=== PATIENT | female | born 1960 | race Two or more races ===

== ENCOUNTER → 2018-01-19 | Outpatient (REF) | payer OTHER | LOC: M LAB REF 09:33 | DX: M54.5 Low back pain (principal) ==

== ENCOUNTER → 2019-09-18 | Outpatient (REF) | payer BC | LOC: M LAB REF 07:16 | PROVIDERS: ATTEND Nurse Practitioner Family | DX: R30.0 Dysuria (principal) ==

== ENCOUNTER → 2020-07-11 | Outpatient (CLI) | payer BC ==
[~2020-07-11] MED LIST: PROHANCE 279.3MG/ML 15ML VIAL As Ordered ONE; PROHANCE 279.3MG/ML 5ML VIAL As Ordered ONE
--- NOTE | 2020-07-11 10:49 | REP ---
INDICATION: NEOPLASM OF UNCERTAIN BEHAVIOR OF LIVER, GB . COMPARISON: MRI 02/18/2018. TECHNIQUE: Multiple sequences obtained in the axial coronal planes prior to and following the intravenous administration of 17 cc ProHance. Heavily T2 weighted sequences are obtained through the biliary system, with MIP reconstruction images. FINDINGS: On T2 weighted images there is an oval hyperintense nodule in the anterior left lobe of the liver along the falciform ligament. Size is stable, with a maximum diameter of 1.7 cm. This demonstrates enhancement characteristics consistent with a benign hemangioma. No other liver lesion is seen. There is diffuse fatty infiltration of the liver. The gallbladder appears unremarkable. Common bile duct is minimally prominent in maximum diameter, 8 mm. An 8 mm filling defect in the common bile duct on the 3D MRCP images is felt to be artifactual, as it is not seen on any other sequence. The spleen, adrenals and pancreas are unremarkable. There is no pancreatic duct dilatation. There are small bilateral parapelvic cysts in the kidneys. There is no adenopathy or free fluid in the abdomen. IMPRESSION: Stable hemangioma left lobe of the liver. Diffuse fatty infiltration of the liver. Slightly prominent common bile duct diameter of 8 mm. On the 3D MRCP images an 8 mm filling defect in the common bile duct is felt to be artifactual, as it is not seen on any other sequence. <Electronically signed by Slim Almazan > 07/11/20 [id number]
== END ==
LOC: M RAD 08:16
PROVIDERS: ATTEND Internal Medicine Gastroenterology
DX: D18.09 Hemangioma of other sites (principal); K76.0 Fatty (change of) liver, not elsewhere classified; N28.1 Cyst of kidney, acquired
CPT/HCPCS: 74183; A9576

== ENCOUNTER → 2020-12-11 | Outpatient (CLI) | payer BC | LOC: M CARPUL 09:19 | PROVIDERS: ATTEND Internal Medicine | DX: Z79.899 Other long term (current) drug therapy (principal); Z84.89 Family history of other specified conditions ==

== ENCOUNTER 2022-09-17 16:23 | Emergency (ER) | payer BC ==
[~2022-09-17] VITALS: Ht 160 cm; Wt 89.5 kg
[2022-09-17 17:45] LABS: BASO % 0.4 % (0.0-1.0); EOS # 0.1 10^3/uL (0.0-0.5); EOS % 1.6 % (0.0-3.0); HEMATOCRIT 43.3 % (36.0-47.0); HEMOGLOBIN 14.3 g/dl (12.0-15.5); LYMPH # 1.3 10^3/uL (1.5-5.0); LYMPH % 16.4 % (24.0-44.0); MEAN CORPUSCULAR VOLUME 84.9 fl (80.0-96.0); MONO # 0.8 10^3/uL (0.0-0.8); MONO % 9.9 % (2.0-8.0); NEUTROPHILS # 5.8 10^3/uL (1.5-8.5); NEUTROPHILS % 71.2 % (36.0-66.0); PLATELET COUNT, AUTOMATED 205 10^3/uL (150-450); WHITE BLOOD COUNT 8.2 10^3/uL (4.0-10.0)
[2022-09-17 18:20] LABS: BLOOD UREA NITROGEN 14 MG/DL (9-23); CALCIUM LEVEL 8.9 MG/DL (8.3-10.6); CARBON DIOXIDE LEVEL 27 MMOL/L (20-31); CHLORIDE LEVEL 103 MMOL/L (98-107); CK-MB VALUE MASS < 1.0 NG/ML (<3.6); CPK CREATINE PHOSPHOKINASE 87 U/L (34-145); CREATININE FOR GFR 0.52 MG/DL (0.55-1.30); GLOMERULAR FILTRATION RATE > 60.0 (>45); GLUCOSE, FASTING 115 MG/DL (74-106); MB/CK RELATIVE INDEX 1.14 (< OR =4); POTASSIUM SERUM 4.8 MMOL/L (3.5-5.1); SODIUM LEVEL 141 MMOL/L (136-145)
[2022-09-17 19:06] LABS: CK-MB VALUE MASS < 1.0 NG/ML (<3.6)
[2022-09-17 19:09] LABS: CPK CREATINE PHOSPHOKINASE 75 U/L (34-145); MB/CK RELATIVE INDEX 1.33 (< OR =4)
[2022-09-17 20:30] VITALS: BP 124/58; TEMP 98.3
[2022-09-17 20:45] VITALS: O2SAT 94
== END 2022-09-17 20:51 | disposition home or self-care (01) ==
LOC: M ED 16:23 → EDBD 16:23 → M ED 20:51
DX: R07.89 Other chest pain (principal); I10 Essential (primary) hypertension; E78.5 Hyperlipidemia, unspecified; K21.9 Gastro-esophageal reflux disease without esophagitis; Z88.2 Allergy status to sulfonamides

== ENCOUNTER → 2023-06-26 | Outpatient (CLI) | payer BC | LOC: M RAD 07:52 | PROVIDERS: ATTEND Nurse Practitioner Acute Care | DX: R01.1 Cardiac murmur, unspecified (principal); I10 Essential (primary) hypertension ==